=== PATIENT | female | born 1955 | race Caucasian/White ===

== ENCOUNTER 2020-01-28 18:32 | Emergency (ER) | payer OTHER ==
[2020-01-28 20:39] LABS: Absolute Lymphocytes (CBC) 3.9 K/uL (0.7-4.9); Basophils % 0.9 % (0-1.3); Hematocrit 42.9 % (36.0-45.0); Lymphocytes % 23.3 % (15.3-44.8); MPV 7.5 fL (7.6-11.3); RBC Red Blood Cell Count 4.77 M/uL (3.86-4.86)
[2020-01-28 20:40] LABS: Protime INR 1.06
[2020-01-28 21:01] LABS: ALT/SGPT 31 U/L (12-78); AST/SGOT 22 U/L (15-37); Albumin 3.9 g/dL (3.4-5.0); Alkaline Phosphatase 98 U/L (45-117); BUN Blood Urea Nitrogen 17 mg/dL (7-18); Bicarbonate 25 mmol/L (21-32); Bilirubin Direct < 0.1 mg/dL (0-0.2); Bilirubin Total 0.2 mg/dL (0.2-1.0); Glucose Level 100 mg/dL (74-106); Magnesium 2.3 mg/dL (1.8-2.4); NT PRO-BNP 53 pg/mL (<125); Potassium 4.1 mmol/L (3.5-5.1); Protein, Total 8.1 g/dL (6.4-8.2); Sodium Level 139 mmol/L (136-145); Troponin (Emerg Dept Use Only) < 0.02 ng/mL (0.0-0.045)
--- NOTE | 2020-01-28 21:05 | RAD REPORT ---
EXAM DESCRIPTION: RAD - Chest Single View - 01/28/2020 8:58 pm CLINICAL HISTORY: CHEST TIGHTNESS Chest pain. COMPARISON: CHEST PA AND LAT 2 VIEW dated 11/20/2011; CHEST PA AND LAT 2 VIEW dated 06/29/2010 FINDINGS: Portable technique limits examination quality. The lungs are grossly clear. The heart is normal in size. No displaced fractures. IMPRESSION: No acute intrathoracic process suspected.
[2020-01-28] MEDS ORDERED: ASPIRIN 81 MG CHEWABLE TABLET ONE (21:26)
--- NOTE | 2020-01-28 22:01 | ER ---
Nurse's Notes [facility] Name: Marci Mas Age: 64 yrs Sex: Female : 1955 Arrival Date: 01/28/2020 Time: 18:35 Bed 3 Private MD: Diagnosis: Chest pain, unspecified Presentation: 01/27 19:13 Chief complaint: Patient states: Sent by Dr. Luong for evaluation of possible drug ss interaction. I was having upper arm and chest tightness, numbness in my hands and feet and a bit of swelling in my feet that started 3 days ago. It's been off and on.". Coronavirus screen: Proceed with normal triage. Patient denies a cough. Patient denies shortness of breath or difficulty breathing. Patient denies measured and/or subjective temperature greater than 100.4F prior to today's visit. Patient denies travel on a cruise ship or to a country the [facility] currently lists as an affected area. Patient denies contact with known and/or suspected case of COVID-19. Ebola Screen: Patient denies exposure to infectious person. Patient denies travel to an Ebola-affected area in the 21 days before illness onset. Initial Sepsis Screen: Does the patient meet any 2 criteria? No. Patient's initial sepsis screen is negative. Does the patient have a suspected source of infection? No. Patient's initial sepsis screen is negative. Risk Assessment: Do you want to hurt yourself or someone else? Patient reports no desire to harm self or others. Onset of symptoms was January 25, 2020. 19:13 Method Of Arrival: Ambulatory ss 19:13 Acuity: LULA 3 ss Historical: - Allergies: 19:16 Bactrim; ss 19:16 PENICILLINS; ss - PMHx: 22:08 Hypertension; rr5 - Immunization history:: Adult Immunizations up to date. - Social history:: Smoking status: Patient/guardian denies using tobacco, but has a distant history of tobacco abuse. Screenin:30 Abuse screen: Denies threats or abuse. Denies injuries from another. Nutritional wh screening: No deficits noted. Tuberculosis screening: No symptoms or risk factors identified. Fall Risk None identified. Assessment: 20:10 General: Appears in no apparent distress. Behavior is calm, cooperative, appropriate wh for age. Pain: Complains of pain in chest Pain does not radiate. Pain currently is 2 out of 10 on a pain scale. Quality of pain is described as pressure, Pain began 2-3 days ago. Is intermittent. Neuro: Level of Consciousness is awake, alert, obeys commands, Oriented to person, place, time, situation, Appropriate for age. Cardiovascular: Heart tones S1 S2 Rhythm is regular. Respiratory: Airway is patent Respiratory effort is even, unlabored, Respiratory pattern is regular, symmetrical, Breath sounds are clear bilaterally. GI: Abdomen is flat, non-distended. : No signs and/or symptoms were reported regarding the genitourinary system. EENT: No signs and/or symptoms were reported regarding the EENT system. Derm: Skin is intact, is healthy with good turgor, Skin is pink, warm \\T\\ dry. normal. Musculoskeletal: Circulation, motion, and sensation intact. 21:50 Reassessment: Patient appears in no apparent distress at this time. No changes from previously documented assessment. Patient and/or family updated on plan of care and expected duration. Pain level reassessed. Patient is alert, oriented x 3, equal unlabored respirations, skin warm/dry/pink. MD at bedside explaining POC. 22:04 Reassessment: Patient appears in no apparent distress at this time. Patient is alert, rr5 oriented x 3, equal unlabored respirations, skin warm/dry/pink. insisting she wants to go now. reassess by ED provider patient agreed for AMA- signed. Vital Signs: 19:13 BP 153 / 89; Pulse 96; Resp 16; Temp 97.3(TE); Pulse Ox 95% ; Weight 79.38 kg; Height 5 ss ft. 3 in. (160.02 cm); Pain 0/10; 21:30 BP 161 / 100; Pulse 94; Resp 18; Pulse Ox 100% ; wh 22:04 BP 162 / 95; Pulse 90; Resp 20; Pulse Ox 100% ; rr5 19:13 Body Mass Index 31.00 (79.38 kg, 160.02 cm) ED Course: 18:35 Patient arrived in ED. fj1 19:15 Triage completed. ss 19:16 Arm band placed on left wrist. 20:07 Sanjana Scott is Primary Nurse. 20:13 Billy Gar MD is Attending Physician. [facility] 20:30 Patient has correct armband on for positive identification. Placed in gown. Bed in low wh position. Call light in reach. Side rails up X 1. media monitor on. Pulse ox on. NIBP on. 20:30 No provider procedures requiring assistance completed. Inserted saline lock: 20 gauge wh in right antecubital area, using aseptic technique. Blood collected. Patient maintains SpO2 saturation greater than 95% on room air. 22:00 Natan Luong MD is Referral Physician. 7 22:07 IV discontinued, intact, bleeding controlled, No redness/swelling at site. Pressure rr5 dressing applied. Administered Medications: 21:22 Drug: Aspirin Chewable Tablet 324 mg Route: PO; rr5 22:08 Follow up: Response: No adverse reaction rr5 Outcome: 22:07 AMA AMA form signed rr5 22:07 Condition: stable 22:07 Instructed on discharge instructions, follow up and referral plans. 22:08 Patient left the ED. rr5 Signatures: So Hernandez RN RN Sanjana Scott Raymond, RN RN rr5 Lanre Beard fj Billy Gar MD MD [facility]
--- NOTE | 2020-01-28 22:01 | EDPHYS ---
Physician Documentation [facility] Name: Marci Mas Age: 64 yrs Sex: Female : 1955 Arrival Date: 01/28/2020 Time: 18:35 Bed 3 Private MD: ED Physician Billy Gar HPI: 01/27 20:41 This 64 yrs old Female presents to ER via Ambulatory with complaints of mh7 Numbness Of Hand, Chest Tightness. 20:42 The patient or guardian reports chest pain that is located primarily in the substernal mh7 area. Onset: 3 day(s) ago. The pain radiates to the left arm. Associated signs and symptoms: Pertinent positives: shortness of breath, Pertinent negatives: abdominal pain, cough, diaphoresis, dizziness, headache, lower extremity pain, lightheadedness, nausea, near syncope, palpitations, recent travel, syncope, vomiting. The chest pain is described as tightness. Duration: The patient or guardian reports multiple episodes, that are intermittent, that wax and wane, with no pattern. Modifying factors: The symptoms are alleviated by nothing. the symptoms are aggravated by nothing. Severity of pain: At its worst the pain was moderate today, in the emergency department the pain has improved moderately. The patient has been recently seen by a physician: the patient's primary care provider. Historical: - Allergies: 19:16 Bactrim; ss 19:16 PENICILLINS; ss - PMHx: 22:08 Hypertension; rr5 - Immunization history:: Adult Immunizations up to date. - Social history:: Smoking status: Patient/guardian denies using tobacco, but has a distant history of tobacco abuse. ROS: 20:42 Constitutional: Negative for fever, chills, and weight loss, Eyes: Negative for injury, mh7 pain, redness, and discharge, ENT: Negative for injury, pain, and discharge, Neck: Negative for injury, pain, and swelling, Abdomen/GI: Negative for abdominal pain, nausea, vomiting, diarrhea, and constipation, Back: Negative for injury and pain, : Negative for injury, bleeding, discharge, and swelling, Skin: Negative for injury, rash, and discoloration, Psych: Negative for depression, anxiety, suicide ideation, homicidal ideation, and hallucinations, Allergy/Immunology: Negative for hives, rash, and allergies, Endocrine: Negative for neck swelling, polydipsia, polyuria, polyphagia, and marked weight changes, Hematologic/Lymphatic: Negative for swollen nodes, abnormal bleeding, and unusual bruising. Exam: 20:42 Constitutional: This is a well developed, well nourished patient who is awake, alert, mh7 and in no acute distress. Head/Face: Normocephalic, atraumatic. Neck: Trachea midline, no thyromegaly or masses palpated, and no cervical lymphadenopathy. Supple, full range of motion without nuchal rigidity, or vertebral point tenderness. No Meningismus. Chest/axilla: Normal chest wall appearance and motion. Nontender with no deformity. No lesions are appreciated. Cardiovascular: Regular rate and rhythm with a normal S1 and S2. No gallops, murmurs, or rubs. Normal PMI, no JVD. No pulse deficits. Respiratory: Lungs have equal breath sounds bilaterally, clear to auscultation and percussion. No rales, rhonchi or wheezes noted. No increased work of breathing, no retractions or nasal flaring. Abdomen/GI: Soft, non-tender, with normal bowel sounds. No distension or tympany. No guarding or rebound. No evidence of tenderness throughout. Back: No spinal tenderness. No costovertebral tenderness. Full range of motion. Skin: Warm, dry with normal turgor. Normal color with no rashes, no lesions, and no evidence of cellulitis. MS/ Extremity: Pulses equal, no cyanosis. Neurovascular intact. Full, normal range of motion. Neuro: Awake and alert, GCS 15, oriented to person, place, time, and situation. Cranial nerves II-XII grossly intact. Motor strength 5/5 in all extremities. Sensory grossly intact. Cerebellar exam normal. Normal gait. Psych: Awake, alert, with orientation to person, place and time. Behavior, mood, and affect are within normal limits. Vital Signs: 19:13 BP 153 / 89; Pulse 96; Resp 16; Temp 97.3(TE); Pulse Ox 95% ; Weight 79.38 kg; Height 5 ss ft. 3 in. (160.02 cm); Pain 0/10; 21:30 BP 161 / 100; Pulse 94; Resp 18; Pulse Ox 100% ; wh 22:04 BP 162 / 95; Pulse 90; Resp 20; Pulse Ox 100% ; rr5 19:13 Body Mass Index 31.00 (79.38 kg, 160.02 cm) ss MDM: 20:41 Patient medically screened. mh7 21:51 Differential diagnosis: acute myocardial infarction, acute pericarditis, coronary mh7 artery disease chest wall pain, gastritis, pneumonia, pneumothorax, stable angina, unstable angina. HEART Score: History: Moderately Suspicious (1), ECG: Non specific repolarization disturbance / LBTB / PM (1), Age: > 45 and < 65 years (1), Risk Factors: 1 or 2 risk factors (1), [Hypercholesterolemia] [Hypertension] Troponin: < or = 1 x Normal Limit (0), Total Score = 4. The patient was given aspirin in the Emergency Department. Data reviewed: vital signs, nurses notes, lab test result(s), cardiac enzymes, CBC, electrolytes, EKG, radiologic studies, plain films. Data interpreted: color television console monitor: rate is 90 beats/min, rhythm is normal sinus rhythm, regular, Interpretation: normal rate, normal rhythm, Pulse oximetry: on room air is 100 %. Interpretation: normal. Counseling: I had a detailed discussion with the patient and/or guardian regarding: the historical points, exam findings, and any diagnostic results supporting the discharge/admit diagnosis, the presence of at least one elevated blood pressure reading (>120/80) during this emergency department visit, lab results, radiology results. Refusal of service: The patient/guardian displays adequate decision making capability and despite a detailed discussion of alternatives, benefits, risks, and consequences refuses: Admission to the hospital for further work-up and treatment, all lab tests. 01/28 07:09 Response to treatment: the patient's symptoms have resolved after treatment, the mh7 patient's blood pressure is in an acceptable range, mental status has returned to baseline, the patient no longer shows bradycardia, the patient is not short of breath, the patient is not tachycardic, the patient's pain is gone, the patient's temperature has normalized. ED course: Well appearing, NAD, VSS, no focal neurological deficits. Discussed all test results and findings with the patient and need for admission. Patient refused admission and wants to leave against medical advice. Explained the possibility of permanent disability and/or if serious condition is present and goes untreated. She verbalized that she understood this information as presented. She knows that she can return to the ER if she has any concerns.. 01/27 20:17 Order name: Basic Metabolic Panel 01/27 20:17 Order name: CBC with Diff 01/27 20:17 Order name: LFT's 01/27 20:17 Order name: Magnesium 01/27 20:17 Order name: NT PRO-BNP 01/27 20:17 Order name: PT-INR 01/27 20:17 Order name: Troponin (emerg Dept Use Only) 01/27 20:42 Order name: CBC with Automated Diff; Complete Time: 21:07 EDMS 01/27 20:45 Order name: Protime (+INR); Complete Time: 21:07 EDMS 01/27 21:01 Order name: Basic Metabolic Panel; Complete Time: 21:07 EDMS 01/27 21:01 Order name: Liver (Hepatic) Function; Complete Time: 21:07 EDMS 01/27 21:01 Order name: Troponin (Emerg Dept Use Only); Complete Time: 21:07 EDMS 01/27 21:01 Order name: NT PRO-BNP; Complete Time: 21:07 EDMS 01/27 21:01 Order name: Magnesium; Complete Time: 21:07 EDNH 01/27 20:17 Order name: XRAY Chest (1 view) 01/27 20:17 Order name: EKG; Complete Time: 21:24 01/27 20:17 Order name: Cardiac monitoring; Complete Time: 20:35 01/27 20:17 Order name: EKG - Nurse/Tech; Complete Time: 20:35 01/27 20:17 Order name: IV Saline Lock; Complete Time: 20:35 01/27 20:17 Order name: Labs collected and sent; Complete Time: 20:35 01/27 20:17 Order name: O2 Per Protocol; Complete Time: 20:35 01/27 20:17 Order name: O2 Sat Monitoring; Complete Time: 20:35 01/27 21:06 Order name: RAD; Complete Time: 21:07 EDNH 01/27 21:07 Order name: Urine Dipstick-Ancillary (obtain specimen); Complete Time: 21:31 mh7 01/27 21:42 Order name: Urine Dipstick--Ancillary (enter results) mw2 Administered Medications: 01/27 21:22 Drug: Aspirin Chewable Tablet 324 mg Route: PO; rr5 22:08 Follow up: Response: No adverse reaction rr5 Disposition: 01/28/20 22:00 Patient has left against medical advice. Impression: Chest pain, unspecified. - Patients states they are going to Home. - Condition is Stable. - Discharge Instructions: Nonspecific Chest Pain, [id number]. Follow up: Natan Luong MD; When: Tomorrow; Reason: Worsening of condition, Recheck today's complaints, Continuance of care, Re-evaluation by your physician. - Problem is new. - Symptoms are resolved. Signatures: Dispatcher [employer] EDMS So Hernandez RN RN ss Sanjana Scott Raymond, RN RN rr5 Billy Gar MD MD mh7 Corrections: (The following items were deleted from the chart) 22:08 22:00 01/28/2020 22:00 Patients has left against medical advice. Impression: Chest rr5 pain, unspecified. Patient states they are going to Home. Condition is Stable. Follow up: Natan Luong; When: Tomorrow; Reason: Worsening of condition, Recheck today's complaints, Continuance of care, Re-evaluation by your physician. Problem is new. Symptoms are resolved. mh7
[2020-01-28 22:08] LABS: Urine Blood 2+ (NEG); Urine Glucose NEGATIVE (NEG); Urine Protein NEGATIVE (NEG); Urine Specific Gravity >1.030 (1.005-1.030); Urine pH 5.5 (5.0-7.0)
[2020-01-28 23:04] VITALS: TEMP 97.3
[2020-01-28 23:06] VITALS: O2SAT 100
[2020-01-28 23:07] VITALS: BP 162/95
--- OUTSIDE RECORDS SUMMARY | 2020-01-29 01:56 | XMS REPORT | Summary of Care ---
:1955 Author Organization [facility] Address [address] [place] [address] Care Team Providers Name Role Phone Silver Luong Genaro Primary Care Provider Leticia Savage MD Unavailable Unavailable 1, Lab Unavailable Unavailable Reason for Referral Radiology Services (Routine) Status Reason Specialty Diagnoses / Referred By Referred To Procedures Contact Contact New Request Diagnostic Diagnoses Osteoporosis of femur without pathological fracture Canelo, Radiology Procedures DEXA AXIAL (HIP AND SPINE) MD Edna [address] [place] [address] Reason for Visit Reason Comments Osteoporosis follow up Encounter Details Date Type Department Care Team Description 11/09/2019 Telemedicine Visit [facility] Canelo Osteoporo sis of Endocrinology- MD Edna femur without [address] pathological Professional Office [facility] Sou h fracture (Primary [place], [place] Dx) [address], [place] [address] [address] [place], [place] [phone] [address] (Fax) [phone] Allergies Active Allergy Reactions Severity Noted Date Comments Penicillins Hives, Itching 08/24/2018 Sulfamethoxazole Itching 06/15/2015 documented as of this encounter (statuses as of 11/09/2019) Medications Medication Sig Dispensed Refills Start Date End Date Status ARIPiprazole Take 2 mg by mouth 0 Active (ABILIFY) 2 mg daily. tabletIndications: Osteoporosis calcium-vitamin D Take 1 Tab by 0 Active (CALCIUM 500+D) 500 mouth 2 (two) mg(1,250mg) -200 unit times daily with per meals. tabletIndications: Osteoporosis DULoxetine (CYMBALTA) Take 60 mg by 0 Active 60 mg mouth daily. capsuleIndications: Osteoporosis fluticasone 50 Use 1 [place] in 0 Active mcg/actuation nasal each nostril sprayIndications: daily. Osteoporosis Vyasp-QX2-LOR-EPA-OM6 Take by mouth. 0 Active -Lip-Astx (KRILL OIL) 1000-130(40-80) mg CapIndications: Osteoporosis escitalopram oxalate Take 20 mg by 0 Active (LEXAPRO) 10 mg mouth daily. tabletIndications: Osteoporosis Red Yeast Rice Take by mouth. 0 Active Extract (CHOLESTEROL MANAGEMENT) 600 mg CapIndications: Osteoporosis traZODone (DESYREL) Take 150 mg by 0 Active 150 mg mouth at bedtime. tabletIndications: Osteoporosis doxepin 10 mg capsule TAKE ONE CAPSULE 0 08/30/2016 Active BY MOUTH AT BEDTIME omeprazole 40 mg TAKE ONE CAPSULE 3 02/22/2017 Active capsule BY MOUTH EVERY DAY DEXILANT 60 mg TAKE 1 CAPSULE BY 3 07/06/2018 Active capsule MOUTH DAILY 30 BEFORE EATING BREAKFAST BYSTOLIC 10 mg tablet Take 10 mg by 3 08/07/2018 Active mouth daily. amLODIPine 5 mg TAKE 1 TABLET BY 3 08/14/2018 Active tablet MOUTH EVERYDAY AT BEDTIME meloxicam 7.5 mg TAKE 1 TABLET BY 0 08/05/2018 Active tablet MOUTH EVERY DAY WITH A MEAL ziprasidone 60 mg Take 60 mg by 0 Active capsule mouth 2 (two) times daily with meals. benzonatate (TESSALON Take 1 capsule by 30 capsule 0 0 Active PERLES) 100 mg mouth 3 (three) capsuleIndications: times daily as Viral illness needed for Cough. documented as of this encounter (statuses as of 11/09/2019) Active Problems Problem Noted Date Bilateral carpal tunnel syndrome 03/12/2017 Tendinitis of both rotator cuffs 03/12/2017 PMR (polymyalgia rheumatica) 12/05/2016 care home current use of systemic steroids 12/05/2016 Immunization counseling 12/05/2016 Bilateral shoulder pain, unspecified chronicity 2016 Pain of both hip joints 11/13/2016 Polyarthralgia 11/13/2016 Pain in lower back 10/21/2015 Osteoporosis 10/17/2015 documented as of this encounter (statuses as of 11/09/2019) Social History Tobacco Use Types Packs/Day Years Used Date Former Smoker Smokeless Tobacco: Never Used Alcohol Use Drinks/Week oz/Week Comments No 0 Standard drinks or equivalent 0.0 Sex Assigned at Date Recorded Not on file Job Start Date Occupation Industry Not on file Not on file Not on file Travel History Travel Start Travel End No recent travel history available. documented as of this encounter Last Filed Vital Signs Not on filedocumented in this encounter Progress Notes Edna Lemos MD - 11/09/2019 11:00 AM CDT TELEHEALTH NOTE Verbal consent obtained from Patient: Francoise Mas due to the COVID-19 pandemic for telehealth services provided below. Communication with patient was conducted via Telephone due to patient unable to obtain video call option. Location of Patient: Home Location of Provider: Clinic Date of Service: 11/09/2019 chief complaint: Osteoporosis- follow up HPI: Francoise Mas is a 63 year old /White femaleevaluated for one year F/U of osteoporosis. . No major medical issues in interim. Denied recent travel, sick contacts. Denied congestion, cough, fevers, bowel changes or abdominal pain. Osteoporosis: DEXA in 11/2014 showed T score -2.6 in right hip, and -2.5 in right femur neck, -2.3 in left hip and -2.2 in left femur neck, -1.9 T lumbar spine. Patient took 2 tablets of Ibandronate that caused burning in the chest and neck discomfort so she stopped. Patient took steroids several times 2-3 times per year for about 6-7 years Complete hysterectomy at age 38, on HRT until age 45 then stopped Quit Smoking, no alcohol use No h/o fractures Patient has active GERD. Patient has underwent and completed dental work up. No further dental procedures planned per patient Today: -- Patient has chronic low back pain. However it is worse in the last 1- 2 weeks. She is taking as needed ADVIL. -- denied falls or fractures in interim. denied injury to her back. -- stopped calcium and vitamin D 4 months ago due to stomach issues. Able to resume now. Meds: Calcium-- 600 mg daily(stopped due to stomach issues 4 months) Vitamin D-- 1000 units daily(stopped due to stomach issues 4 months) Reclast-- 10/21/2015, 10/2016, 10/2017, 10/2018 COMPARISON WITH PREVIOUS EXAMS (BMD): Region 2014 2018 2019 Lumbar L1-4 spine -1.9 -0.4 0.0 Left femoral neck -2.2 -1.9 Left total hip -2.3 -1.7 Right femoral neck -2.5 -2.4 -2.2 Right total hip -2.6 -2.1 -2.0 Patient sees Rheumatology, Dr Sanders diagnosed with PMR-of hips Backache: Chronic lower mid- but got worse since last 1-2 months. Denies falls. 2015 X ray spine showed following, patient was being managed by pain clinic at that time. 1. Changes of mild spondylosis at L2-L3 and L3-L4 2. Mild facet arthropathy at L5-S1 HISTORY Reviewed past medical, surgical, social, family history and no changes REVIEW OF SYSTEMS Constitutional: denies weight gain and weight loss Eyes: denies blurry vision. Nose/Sinuses: denies rhinorrhea . Mouth/Throat: Denies dental/gum pain. Cardiovascular: denies chest pain . Respiratory: denies shortness of breath. Gastrointestinal: denies abdominal pain, admits to dyspepsia and denies food intolerance. Musculoskeletal: Arthralgias improved. +lower back pain Endocrine: denies goiter, denies intolerance to cold and denies intolerance to heat. Current Outpatient Medications Medication Sig Dispense Refill benzonatate (TESSALON PERLES) 100 mg capsule Take 1 capsule by mouth 3 (three) times daily as needed for Cough. 30 capsule 0 amLODIPine 5 mg tablet TAKE 1 TABLET BY MOUTH EVERYDAY AT BEDTIME 3 BYSTOLIC 10 mg tablet Take 10 mg by mouth daily. 3 DEXILANT 60 mg capsule TAKE 1 CAPSULE BY MOUTH DAILY 30 BEFORE EATING BREAKFAST 3 meloxicam 7.5 mg tablet TAKE 1 TABLET BY MOUTH EVERY DAY WITH A MEAL 0 ziprasidone 60 mg capsule Take 60 mg by mouth 2 (two) times daily with meals. omeprazole 40 mg capsule TAKE ONE CAPSULE BY MOUTH EVERY DAY 3 doxepin 10 mg capsule TAKE ONE CAPSULE BY MOUTH AT BEDTIME 0 ARIPiprazole (ABILIFY) 2 mg tablet Take 2 mg by mouth daily. calcium-vitamin D (CALCIUM 500+D) 500 mg(1,250mg) -200 unit per tablet Take 1 Tab by mouth 2 (two) times daily with meals. DULoxetine (CYMBALTA) 60 mg capsule Take 60 mg by mouth daily. escitalopram oxalate (LEXAPRO) 10 mg tablet Take 20 mg by mouth daily. fluticasone 50 mcg/actuation nasal spray Use 1 [place] in each nostril daily. Pneux-GE3-JHV-WFU-BT4-Xmj-Astx (KRILL OIL) 1000-130(40-80) mg Cap Take by mouth. Red Yeast Rice Extract (CHOLESTEROL MANAGEMENT) 600 mg Cap Take by mouth. traZODone (DESYREL) 150 mg tablet Take 150 mg by mouth at bedtime. No current facility-administered medications for this visit. 10/17/2015 11:26 AM Narrative *.*.*.*.*.*.*.*.*.*.*.*.*.*FINAL*.*.*.*.*.*.*.*.*.*.*.*.*.*.* EXAM: Lumbar spine 2 views HISTORY: Acute low back pain TECHNIQUE:AP and lateral view of the lumbar spine is obtained. FINDINGS:Very minimal scoliosis of the lumbar spine is noted. 5 lumbar vertebral bodies are seen. There is no evidence of an acute fracture. Alignment of the vertebral bodies is satisfactory. Changes of degenerative spondylosis are seen at L2-L3 and L3-L4 in the form of small marginal osteophytes. Mild facet hypertrophy seen at L5-S1. Atherosclerotic aspirations are seen in the distal abdominal aorta. Small calcification in the right side of the pelvis is most likely a phlebolith. Gallbladder is removed. Personally interpreted by: CHELA ORTEGA MD /Signed/ CHELA ORTEGA MD Impression IMPRESSION: 1. Changes of mild spondylosis at L2-L3 and L3-L4 2. Mild facet arthropathy at L5-S1 Component Latest Ref Rng & Units 04/15/2018 07/25/2017 10:26 AM 10:02 AM NA 135 - 145 mmol/L 139 K 3.5 - 5.0 mmol/L 4.3 CL 98 - 108 mmol/L 99 CO2 TOTAL 23 - 31 mmol/L 27 AGAP 2 - 16 13 BUN 7 - 23 mg/dL 14 GLUCOSE 70 - 110 mg/dL 94 CREATININE 0.50 - 1.04 mg/dL 0.55 TOTAL BILI 0.1 - 1.1 mg/dL 0.5 CALCIUM 8.6 - 10.6 mg/dL 9.6 T PROTEIN 6.3 - 8.2 g/dL 7.2 ALBUMIN 3.5 - 5.0 g/dL 4.3 ALK PHOS 34 - 122 U/L 69 ALT(SGPT) 9 - 51 U/L 33 AST(SGOT) 13 - 40 U/L 26 eGFR CALCULATION (non ) mL/min/1.73m2 111.6 eGFR CALCULATION () mL/min/1.73m2 135.3 VIT D 25OH 25 - 80 ng/mL 48 25-Hydroxy D3 ng/mL 48.3 25-Hydroxy D2 ng/mL <2.5 ASSESSMENT/PLAN Osteopenia of both hips (primary encounter diagnosis) Comment: Secondary causes including PHPT, Hyperthyroidism ruled out. Risk factors early menopause, steroid use, smoking ( quit ) Intolerance to oral bisphosphonates due to GERD and patient does not want to take Teriparatide due to self administered shots. Received Reclast in 12/2015, 10/2016, 10/2017, 10/2018 with interim improvement in right hip BMD. COMPARISON WITH PREVIOUS EXAMS (BMD): Region 2014 2017 2018 Lumbar L1-4 spine -1.9 -0.4 0.0 Left femoral neck -2.2 -1.9 Left total hip -2.3 -1.7 Right femoral neck -2.5 -2.4 -2.2 Right total hip -2.6 -2.1 -2.0 Plan: DEXA in 10/2020. Will hold off on reclast in 10/2019 as there is significant improvement in her BMD Continue vit D and calcium supplementation Avoid heavy weights and fall precautions RTC 1 year. After visit summary (AVS ) documentation will be available through [employer] for this encounter. A total of 15 minutes was spent on the Telephone due to patient unable to obtain video call option. Edna Lemos MD Rn Paralegal Endocrinology, Diabetes and Metabolism documented in this encounter Plan of Treatment Name Type Priority Associated Diagnoses Order S chedule DEXA AXIAL (HIP AND IMAGING Routine Osteoporosis of femur Expected: 10/08/2020, SPINE) without pathological Expires : 11/08/2020 fracture Health Maintenance Due Date Last Done Comments DTaP,Tdap,and Td Vaccines (1 - 1966 Tdap) PAP SMEAR 1976 Breast Cancer Screening 1995 (MAMMOGRAM) COLONOSCOPY 2005 Zoster Recombinant Vaccine 2005 (SHINGRIX) (1 of 2) LUNG CANCER SCREEN: Recommended 2010 for age 55-80 with 30 + pack year history INFLUENZA VACCINE (#1) 2019 HEPATITIS C (HCV) SCREEN Completed 11/20/2016 PNEUMOCOCCAL 0-64 YEARS COMBINED Aged Out No longer eligible based on SERIES patient's age to complete this topic documented as of this encounter Results Not on filedocumented in this encounter Visit Diagnoses Diagnosis Osteoporosis of femur without pathologic al fracture - Primary documented in this encounter Insurance Payer Benefit Plan / Subscriber ID Effective Dates Phone Addre ss Type Group MEDICARE MEDICARE PART A xxxxxxxxxxx 2007-Lola [phone] Medicare & [id number] [place] [address] AETNA AETNA INDEMNITY [id number] 2013-Lola Johnson t documented as of this encounter
--- OUTSIDE RECORDS SUMMARY | 2020-01-29 01:56 | XMS REPORT | Continuity of Care Document ---
:1955 Author Organization [facility] t Address [address] [place] [address] Care Team Providers Name Role Phone Canelo SWEET Attending Clinician Rob NAYLOR Attending Clinician Doctor Unassigned, Name Attending Clinician Unavailable MANJIT Attending Clinician Unavailable Problems This patient has no known problems. Allergies, Adverse Reactions, Alerts This patient has no known allergies or adverse reactions. Medications This patient has no known medications. Vital Signs Vital Name Observation Time Observation Value Comments Source Height 2018-09-19 09:08:00 64.5 [in_us] [facility] Weight 2018-09-19 09:08:00 189 [lb_av] [facility] Body Mass Index 2018-09-19 09:08:00 31.94 kg/m2 [facility] Calculated Physicians Procedures This patient has no known procedures. Encounters Start End Encounter Admission Attending Care Care Encounter Source Date/Time Date/Time Type Type Clinicians Facility Department ID 2019-11-09 2019-11-09 TelemedicLUDMILA Humphreys [id number] [id number] 08:14:41 08:44:41 ne Visit Edna Colindres [id number] [place] [id number] D[place] [phone] [facility] Building 2019-09-20 2019-09-20 Urgent LUDMILA Rivas [id number] 10:19:42 11:35:51 Care [facility] [id number] Surgical [id number] Specialti [id number] [address] [place] 2019-09-09 2019-09-09 Orders Doctor PIERO [id number] 00:00:00 00:00:00 Only Unassigned, RACQUEL [id number] [facility] [id number] [id number] 2019-08-20 2019-08-20 Orders Doctor PIERO [id number] 00:00:00 00:00:00 Only Unassigned, RACQUEL [id number] [place] [facility] [id number] [id number] 2018-09-19 2018-09-19 Appointmen AMIRAH SARAVIA [id number] [facility] 09:00:00 09:00:00 t; ESTIVEN SARAVIA, [facility] Specialty Aden as M.D. Physici ans Results This patient has no known results.
== END 2020-01-28 22:08 | disposition left against medical advice (07) ==
LOC: ER 18:32
DX: R07.9 Chest pain, unspecified (principal); Z88.1 Allergy status to other antibiotic agents; Z88.0 Allergy status to penicillin; Z53.29 Procedure and treatment not carried out because of patient's decision for other reasons
CPT/HCPCS: 36415; 71045; 80048; 80076; 81003; 83735; 83880; 84484; 85025; 85610; 99285

== ENCOUNTER 2020-08-26 07:02 | Day surgery (SDC) | payer OTHER, BC ==
[2020-08-25 16:36] LABS: Absolute Lymphocytes (CBC) 2.7 K/uL (0.7-4.9); BUN Blood Urea Nitrogen 14 mg/dL (7-18); Basophils % 0.8 % (0-1.3); Bicarbonate 28 mmol/L (21-32); Glucose Level 102 mg/dL (74-106); Hematocrit 42.6 % (36.0-45.0); Lymphocytes % 21.8 % (15.3-44.8); MPV 8.1 fL (7.6-11.3); Potassium 4.2 mmol/L (3.5-5.1); RBC Red Blood Cell Count 4.82 M/uL (3.86-4.86); Sodium Level 141 mmol/L (136-145)
--- OUTSIDE RECORDS SUMMARY | 2020-08-26 07:28 | XMS REPORT | Continuity of Care Document ---
:1955 Author Organization [facility] t Address [address] [place] [address] Dr. Dickson[address] [place] [address] Care Team Providers Name Role Phone Canelo SWEET Attending Clinician Rob NAYLOR Attending Clinician Doctor Unassigned, Name Attending Clinician Unavailable MANJIT Attending Clinician Unavailable DR KRYSTLE Attending Clinician Unavailable DR KRYSTLE Admitting Clinician Unavailable Problems This patient has no known problems. Allergies, Adverse Reactions, Alerts This patient has no known allergies or adverse reactions. Medications This patient has no known medications. Vital Signs Vital Name Observation Time Observation Value Comments Source Height 2018-09-19 09:08:00 64.5 [in_us] [facility] Weight 2018-09-19 09:08:00 189 [lb_av] [facility] Body Mass Index 2018-09-19 09:08:00 31.94 kg/m2 [facility] Calculated Physicians Procedures This patient has no known procedures. Encounters Start End Encounter Admission Attending Care Care Encounter Source Date/Time Date/Time Type Type Clinicians Facility Department ID 2019-11-09 2019-11-09 TelemedicLUDMILA Humphreys [id number] [id number] 08:14:41 08:44:41 ne Visit Edna Colindres [id number] [place] [id number] D[place] [id number] [facility] 220 Building 2019-09-20 2019-09-20 Urgent LUDMILA Rivas [id number] 10:19:42 11:35:51 Care [facility] [id number] Surgical [id number] Specialti [id number] es [address] [place] 2019-09-09 2019-09-09 Orders Doctor PIERO 1.2.840.114 [id number] 00:00:00 00:00:00 Only Unassigned, RACQUEL [id number] [facility] [id number] [id number] 2019-08-20 2019-08-20 Orders Doctor PIERO [id number] 00:00:00 00:00:00 Only Unassigned, RACQUEL [id number] [facility] [id number] [id number] 2018-09-19 2018-09-19 Appointmen AMIRAH SARAVIA [id number] [facility] 09:00:00 09:00:00 t; ESTIVEN SARAVIA, [facility] Specialty Aden as M.DMickey Physici ans 2017-08-23 2017-08-23 [facility] WWACU [id number] [address] 05:32:00 15:00:00 [facility] Results Test Description Test Time Test Comments Results Result Comments Source BASIC METABOLIC PANEL *WW* 2017-08-23 07:17:00 Test Item Value Reference Range Interpretation Comme nts GLUCOSE (test code = 06D) 105 mg/dL 75-100 H SODIUM (test code = 01A) 142 mmol/L 136-145 POTASSIUM (test code = 01B) 4.4 mmol/L 3.6-5.1 CHLORIDE (test code = 04A) 107 mmol/L 98-107 CO2 (test code = 02A) 27 mmol/L 22-32 ANION GAP (test code = ANG) 12.4 mmol/L BUN (test code = 05D) 14 mg/dL 7-18 CREATININE (test code = 03E) 0.6 mg/dL 0.4-1.1 BUN/CREA (test code = BCR) 22 12-20 H CALCIUM (test code = 09D) 8.6 mg/dL 8.3-9.5 NICOTINE/COTININE (URINE)2017-08-23 07:16:00 Test Item Value Reference Range Interpretation Comments NICOTINE (test code = WNICOTN) NEGATIVE NEGATIVE
[2020-08-26] MEDS ORDERED: Ringers Lactate 1,000 ML IV ONE (07:56)
[2020-08-26] MEDS ORDERED: CIPROFLOXACIN 400mg IV 400 MG/200 ML BAG IV ONE (07:57)
[2020-08-26] MEDS ORDERED: SCOPOLAMINE HYDROBROMIDE PATCH TD ONE (08:05)
[2020-08-26 08:12] VITALS: O2SAT 96
[2020-08-26] MEDS ORDERED: LIDOCAINE 1% MPF 30 ML VIAL ONE (08:13)
[2020-08-26] MEDS ORDERED: BUPIVACAINE 0.5% PF 10 ML VIAL ONE (08:13)
[2020-08-26] MEDS ORDERED: propofoL 200 MG/20 ML VIAL IV ONE (09:04)
[2020-08-26] MEDS ORDERED: FENTANYL CITR 100 MCG/2 ML ONE (09:05)
[2020-08-26] MEDS ORDERED: MIDAZOLAM HCL 2 MG/2 ML INJ ONE (09:05)
[2020-08-26] MEDS ORDERED: LIDOCAINE 1% MPF 5 ML VIAL ONE (09:05)
[2020-08-26] MEDS ORDERED: KETOROLAC 30 MG/ML INJ ONE (09:28)
[2020-08-26] MEDS ORDERED: ONDANSETRON 4 MG/2 ML VIAL ONE (09:44)
[2020-08-26] MEDS ORDERED: Mastisol Adhesive Liq ONE (10:17)
[2020-08-26] MEDS ORDERED: HYDROCODONE/APAP 7.5/325 MG TAB ONE (11:14)
--- NOTE | 2020-08-26 11:18 | OP ---
Date of Procedure: 08/26/2020 Surgeon: Charlie Batres MD Refrigerator Crater: ASIF Rodriguez. Preoperative Diagnosis: Left side, vision changes. Rule out temporal arteritis. Postoperative Diagnosis: Left side, vision changes. Rule out temporal arteritis. Procedure: Left temporal artery biopsy, utilization of Doppler device. Estimated Blood Loss: Minimal. Specimen: Left temporal artery. Findings: As above. Anesthesia: MAC. Complications: None. The patient tolerated the procedure in stable condition, taken to Recovery in good general condition. Procedure In Detail: The patient was brought to the OR and placed in supine position. MAC anesthesi a was begun. The patient was prepped and draped in the usual sterile fashion and then Doppler device was used to isolate the branch of the temporal artery in the anterior and superior aspect of the left ear and then lidocaine 1% infiltrated locally. A 15-blade was used to make a 4 cm incision. Subcut aneous tissue was divided. The subcutaneous tissue of the branch of the temporal artery as well as t he vein that was very intimately associated with it was identified. Proximal and distal control was obtained after adequate dissection and then approximately total segment of 4 cm excised and sent in p ieces to Pathology. Wound was irrigated. Bleeding was controlled with cautery. Both ends were tied off with formal silk ties and then 4-0 chromic was used to approximate the subcutaneous tissue and c lose the skin. Sterile dressing was applied. The patient was awakened and taken to Recovery in good general condition. Discharge Note: The patient will go to Day Surgery and home when stable. Disposition: Home. Condition: Stable. Discharge Instructions: Resume home medications and diet. Activity as tolerated. No heavy lifting. Remove outer dressing in 2 days. Shower. Keep wound clean and dry. Keep Steri-Strips on at all t imes. Follow up in my office in 2 weeks. Call for appointment. Follow up with Dr. Cedillo in 1 we ek. Call for appointment. Tylenol No.3 one tablet p.o. q.4 p.r.n. pain. /MODL Voice ID: [id number] Report ID: [id number]
[2020-08-26 11:46] VITALS: BP 155/71; TEMP 98.9
[2020-08-26] MEDS ORDERED: CIPROFLOXACIN 400mg IV 400 MG/200 ML BAG IV SCH (18:00)
== END 2020-08-26 11:34 | disposition home or self-care (01) ==
LOC: OR 07:02
PROVIDERS: ATTEND Surgery
PROC: 03BT0ZZ Excision of Left Temporal Artery, Open Approach (ICD-10-PCS; principal; 2020-08-26 08:45)
DX: H53.2 Diplopia (principal); Z88.0 Allergy status to penicillin; Z88.1 Allergy status to other antibiotic agents; Z20.822 Contact with and (suspected) exposure to COVID-19
CPT/HCPCS: 85025; 80048; 36415; 88305; 37609; U0002; J2704; J2250; J3010; J7120; J2405; J0744

== ENCOUNTER 2023-05-02 13:30 | Day surgery (SDC) | payer OTHER, BC ==
[2023-05-01 13:50] LABS: Absolute Lymphocytes (CBC) 2.8 K/uL (0.7-4.9); Hematocrit 38.2 % (36.0-45.0); Lymphocytes % 24.5 % (15.3-44.8); MCV 92.4 fL (80-100); MPV 7.2 fL (7.6-11.3); Platelets 400 thou/uL (152-406); RBC Red Blood Cell Count 4.13 M/uL (3.86-4.86)
[2023-05-01 13:52] LABS: Protime INR 1.02
[2023-05-01 14:01] LABS: Potassium 4.7 mEq/L (3.5-5.1)
--- NOTE | 2023-05-01 14:34 | RAD REPORT ---
EXAM DESCRIPTION: RAD - Chest Single View - 05/01/2023 2:25 pm CLINICAL HISTORY: PREOP Chest pain. COMPARISON: Chest Single View dated 01/28/2020; CHEST PA AND LAT 2 VIEW dated 11/20/2011; CHEST PA AND L AT 2 VIEW dated 06/29/2010 FINDINGS: Portable technique limits examination quality. The lungs are grossly clear. The heart is mildly enlarged in size. No displaced fractures. IMPRESSION: No acute intrathoracic process suspected.
[2023-05-02] MEDS ORDERED: NA CHLORIDE 0.9% 500 ML ONE (14:07)
[2023-05-02] MEDS ORDERED: LIDOCAINE 1% 20 ML MDV ONE (14:42)
[2023-05-02] MEDS ORDERED: HEPA 1000U/500MLS 2,000 UNIT/1,000 ML BAG IV ONE (14:42)
[2023-05-02] MEDS ORDERED: MIDAZOLAM HCL 2 MG/2 ML INJ ONE (14:43)
[2023-05-02] MEDS ORDERED: VERAPAMIL HCL 10 MG/4 ML VIAL IV ONE (14:43)
[2023-05-02] MEDS ORDERED: FENTANYL CITR 100 MCG/2 ML ONE (14:43)
[2023-05-02] MEDS ORDERED: HEPARIN 5000 UNIT/ML 1 ML VIAL ONE (14:43)
[2023-05-02] MEDS ORDERED: HEPARIN 10,000 UNIT/10 ML VIAL IV ONE (14:44)
[2023-05-02] MEDS ORDERED: CLOPIDOGREL 75 MG TABLET ONE (15:24)
[2023-05-02] MEDS ORDERED: ASPIRIN 325 MG TAB ONE (15:25)
[2023-05-02] MEDS ORDERED: TICAGRELOR 90 MG TABLET PO ONE (15:25)
[2023-05-02 16:25] VITALS: TEMP 98
[2023-05-02 17:33] VITALS: O2SAT 100
[2023-05-02 19:12] VITALS: BP 140/74
--- NOTE | 2023-05-02 23:18 | OP ---
Date of Procedure: 05/02/2023 Surgeon: RONEN GARVIN Procedures Performed: 1.Selective coronary angiogram. 2.Left heart catheterization. 3.Failed PCI of the mid LAD MINCEMEAT MAKER. Access: Right radial artery 6-[place] closed with TR band. Complications: None. Bleeding: Less than 20 mL. Description Of Procedure: After risks, benefits, alternatives were explained, patient agreed to proc edure and signed informed consent. Patient was brought into the cardiac catheterization laboratory, prepped and draped in usual sterile fashion and accessed right radial artery using pediatric micropun cture kit, placed 6-[place] slender sheath and took 5-[place] Taylor 4 catheter into the aortic root, en gaged the RCA, took standard views and then could not engage the LAD due to tortuosity, so I exchange d for a 6-[place] EBU3.5, engaged left main, took standard views and there was a MINCEMEAT MAKER of mid LAD with c ollaterals from diagonal 1 branch. Gave systemic heparin to assure ACT level above 250 and took a ru n-through wire into the mid LAD and I could not cross the stenosis and then removed the wire. Final angiogram was satisfactory. Catheter was pushed over the wire into the LV, measured LVEDP. Pull-shahzad k did not record any gradient, catheter was removed, sheath was removed, placed TR band with good hem ostasis. Findings: 1.Left main: Large and normal. 2.Proximal LAD is normal. Mid LAD MINCEMEAT MAKER 100% right after diagonal and septal branch takeoff and the d iagonal branch is large with mild disease about 20% and gives collaterals to the LAD. LAD fills back all the way to the MINCEMEAT MAKER. 3.Left circumflex, small and no disease. 4.RCA: It is dominant with proximal 40%, mid 40%-50%. 5.LVEDP slightly elevated at 50 mmHg. Conclusion: 1.Severe mid LAD MINCEMEAT MAKER, 100% failed, attempted PCI. 2.Moderate coronary artery disease elsewhere. Recommendations: Given that the patient is symptomatic, we will try optimal medical therapy. If it does not work and continues to have symptoms, then I recommend single-vessel CABG. SR/MODL Voice ID: [id number] Report ID: [id number]
== END 2023-05-02 18:30 | disposition home or self-care (01) ==
LOC: CCL 13:30
PROVIDERS: ATTEND Internal Medicine
DX: I25.110 Atherosclerotic heart disease of native coronary artery with unstable angina pectoris (principal); I25.82 Chronic total occlusion of coronary artery; I10 Essential (primary) hypertension; Z88.0 Allergy status to penicillin; Z88.3 Allergy status to other anti-infective agents
CPT/HCPCS: 85025; 80048; 36415; 83721; 85610; 85730; 71045; 93458; 76937; C1893; Q9966; J1644; J2001; J2250; J3010; J7040